=== PATIENT | male | born 1975 | race African-American/Black ===

== ENCOUNTER 2019-06-18 19:14 | Emergency (ER) | payer BC ==
--- NOTE | 2019-06-18 19:39 | ED ---
Throat Pain/Nasal Congestion - HPI Summary HPI Summary: 43 yr old with the complaint of sore throat. Onset of symptoms three to four days ago. He has some discomfort a couple of times over the past few weeks. No fever, no chills. No stridor. no drooling. No runny nose, no coughing. He has no other complaints. He has a history of HTN; he is on medication for this, and his heart rate always runs in the 40s. - History of Current Complaint Time Seen by Provider: 06/18/19 19:26 - Allergies/Home Medications Allergies/Adverse Reactions: Allergies Allergy/AdvReac Type Severity Reaction Status Date / Time enviromental Allergy Unknown Unknown Uncoded 06/18/19 19:23 Reaction Details Home Medications: Home Medications Cholecalciferol TAB* [Vitamin D TAB*] 1,000 unit PO DAILY 06/18/19 [History Confirmed 06/18/19] Flaxseed [Flax Seeds] 1 pow PO DAILY 06/18/19 [History Confirmed 06/18/19] Metoprolol Succinate [Metoprolol Succinate ER] 25 mg PO DAILY 06/18/19 [History Confirmed 06/18/19] NIFEdipine CAP* [Procardia CAP*] 60 mg PO DAILY 06/18/19 [History Confirmed ] PMH/Surg Hx/FS Hx/Imm Hx Infectious Disease History: Denies: Traveled Outside the [place] in Last 30 Days - Family History Known Family History: Positive: None Review of Systems Constitutional: Negative Positive: Sore Throat All Other Systems Reviewed And Are Negative: Yes Physical Exam Triage Information Reviewed: Yes Vital Signs Reviewed: Yes Appearance: Positive: Well-Appearing, No Pain Distress Skin: Positive: Warm, Skin Color Reflects Adequate Perfusion Head/Face: Positive: Normal Head/Face Inspection Eyes: Positive: EOMI ENT: Positive: Pharyngeal erythema, TMs normal. Negative: Nasal congestion Neck: Positive: Nontender, No Lymphadenopathy Respiratory/Lung Sounds: Positive: Clear to Auscultation, Breath Sounds Present Cardiovascular: Positive: RRR. Negative: Murmur Abdomen Description: Negative: Distended Musculoskeletal: Positive: Strength/ROM Intact Neurological: Positive: Sensory/Motor Intact, Alert, Oriented to Person Place, Time, CN Intact II-III, Normal Gait, Speech Normal Psychiatric: Positive: Normal - Andrew Coma Scale Best Eye Response: 4 - Spontaneous Best Motor Response: 6 - Obeys Commands Best Verbal Response: 5 - Oriented Coma Scale Total: 15 EENT Course/Dx - Course Course Of Treatment: 43 yr old male with sore throat. Rapid strep is negative - Diagnoses Provider Diagnoses: Pharyngitis, Hypertension Discharge ED - Sign-Out/Discharge Documenting (check all that apply): Patient Departure All imaging exams completed and their final reports reviewed: No Studies - Discharge Plan Condition: Good Disposition: HOME Patient Education Materials: Pharyngitis (ED), Hypertension (ED) Referrals: Kunal Anne MD [Primary Care Provider] - - Billing Disposition and Condition Condition: GOOD Disposition: Home
[2019-06-18 19:41] VITALS: BP 147/104
== END 2019-06-18 20:31 | disposition home or self-care (01) ==
LOC: UCCORT 19:14
DX: J02.9 Acute pharyngitis, unspecified (principal); I10 Essential (primary) hypertension; Z79.899 Other long term (current) drug therapy; Z91.09 Other allergy status, other than to drugs and biological substances
CPT/HCPCS: 87651; 99201; G0463